=== PATIENT | male | born 1955 | race Caucasian/White ===

== ENCOUNTER 2021-02-24 07:37 | Day surgery (SDC) | payer OTHER, MEDICARE ==
[~2021-02-24 07:37] MED LIST: Lactated Ringers 1,000 ML IV SCH
--- NOTE | 2021-02-24 08:34 | PCM.PREANE ---
Preanesthetic Assessment - Anesthesia/Transfusion/Family Hx Anesthesia History: Prior Anesthesia Without Reaction Transfusion History: No Prior Transfusion(s) - Review of Systems General: No Symptoms Pulmonary: No Symptoms Cardiovascular: No Symptoms Gastrointestinal: No Symptoms Neurological: No Symptoms Other: Reports: None - Physical Assessment NPO Status Date: 02/24/21 NPO Status Time: 00:00 Vital Signs: Last Vital Signs Temp 97.2 F 02/24/21 07:54 Pulse 82 02/24/21 07:54 Resp 16 02/24/21 07:54 BP 99/70 02/24/21 07:54 Pulse Ox 93 L 02/24/21 07:54 Height: 5 ft 6 in Weight: 157 lb ASA Class: 2 Mental Status: Alert & Oriented x3 Airway Class: Mallampati = 2 Dentition: Reports: Normal Dentition ROM/Head Extension: Full Lungs: Clear to Auscultation, Normal Respiratory Effort Cardiovascular: Regular Rate, Regular Rhythm - Allergies Allergies/Adverse Reactions: Allergies Allergy/AdvReac Type Severity Reaction Status Date / Time No Known Allergies Allergy Verified 02/24/21 07:55 - Acknowledgements Anesthesia Type Planned: General Anesthesia Pt an Appropriate Candidate for the Planned Anesthesia: Yes Alternatives and Risks of Anesthesia Discussed w Pt/Guardian: Yes Pt/Guardian Understands and Agrees with Anesthesia Plan: Yes PreAnesthesia Questionnaire HEENT History: Reports: Other (See Below) Other HEENT History: reading glasses Cardiovascular History: Reports: High Cholesterol Respiratory History: Reports: Other (See Below) Other Respiratory History: smoked for 50 years, quit 3 years ago, states SOB at times, positive for COVID in Gastrointestinal History: Reports: Colon Polyp Genitourinary History: Reports: None Other Musculoskeletal History: crush injury to left foot & had surgery to repair lacerations (no broken bones), has some 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 Neurological History: Reports: None Psychiatric History: Reports: None Endocrine/Metabolic History: Reports: None Hematologic History: Reports: None Immunologic History: Reports: None Oncologic (Cancer) History: Reports: None Dermatologic History: Reports: None - Past Surgical History Head Surgeries/Procedures: Reports: None HEENT Surgical History: Reports: Cataract Surgery Cardiovascular Surgical History: Reports: None Respiratory Surgical History: Reports: None GI Surgical History: Reports: Colonoscopy, EGD, Hernia, Inguinal Male Surgical History: Reports: None Endocrine Surgical History: Reports: None Neurological Surgical History: Reports: None Musculoskeletal Surgical History: Reports: Other (See Below) Other Musculoskeletal Surgeries/Procedures:: left foot Oncologic Surgical History: Reports: None Dermatological Surgical History: Reports: None - SUBSTANCE USE Tobacco Use Status *Q: Former Tobacco User Tobacco Use Within Last Twelve Months: Other (See Below) - HOME MEDS Home Medications: Home Meds Ibuprofen 800 mg PO TID PRN 02/20/21 [History] Simvastatin 10 mg PO DAILY 02/20/21 [History] - CURRENT (IN HOUSE) MEDS Current Meds: Current Medications Lactated Ringer's (Ringers, Lactated) 1,000 mls @ 125 mls/hr IV ASDIRECTED [facility] Last Admin: 02/24/21 08:12 Dose: 125 mls/hr Documented by:
[2021-02-24] MEDS ORDERED: fentaNYL 100 MCG/2 ML SDV ONE (09:24)
[2021-02-24] MEDS ORDERED: Propofol 200 MG/20 ML SDV ONE (09:24)
[2021-02-24] MEDS ORDERED: Midazolam 1 MG/ML 2 ML SDV ONE (09:24)
--- NOTE | 2021-02-24 09:40 | PCM.OPNOTE ---
- General Post-Op/Procedure Note Date of Surgery/Procedure: 02/24/21 Operative Procedure(s): Colonoscopy with cold rectal polypectomy. Pre Op Diagnosis: Personal history of colon polyps. History of diverticulosis. Post-Op Diagnosis: Rectal polyp. Mild sigmoid diverticulosis. Anesthesia Technique: MAC (ASA III) Primary Surgeon: Cameron Shahid Condition: Good Free Text/Narrative:: DICTATION [id number] CPT CODE 15039
--- NOTE | 2021-02-24 09:43 | PCM.POSTAN ---
POST ANESTHESIA ASSESSMENT - MENTAL STATUS Mental Status: Alert, Oriented - VITAL SIGNS Vital Signs: Last Vital Signs Temp 97.2 F 02/24/21 07:54 Pulse 82 02/24/21 07:54 Resp 16 02/24/21 07:54 BP 99/70 02/24/21 07:54 Pulse Ox 93 L 02/24/21 07:54 - RESPIRATORY Respiratory Status: Respiratory Rate WNL, Airway Patent, O2 Saturation Stable - CARDIOVASCULAR CV Status: Pulse Rate WNL, Blood Pressure Stable - GASTROINTESTINAL GI Status: No Symptoms - POST OP HYDRATION Hydration Status: Adequate & Stable
--- NOTE | 2021-02-24 09:44 | PCM48HPAN ---
Post Anesthesia Note - EVALUATION WITHIN 48HRS OF ANESTHETIC Vital Signs in Normal Range: Yes Patient Participated in Evaluation: Yes Respiratory Function Stable: Yes Airway Patent: Yes Cardiovascular Function Stable: Yes Hydration Status Stable: Yes Pain Control Satisfactory: Yes Nausea and Vomiting Control Satisfactory: Yes Mental Status Recovered: Yes Vital Signs: Last Vital Signs Temp 97.2 F 02/24/21 07:54 Pulse 82 02/24/21 07:54 Resp 16 02/24/21 07:54 BP 99/70 02/24/21 07:54 Pulse Ox 93 L 02/24/21 07:54
[2021-02-24] MEDS ORDERED: Lactated Ringers 1,000 ML IV SCH (09:45)
--- NOTE | 2021-02-24 10:50 | OR ---
SURGEON: Cameron Shahid M.D. DATE OF PROCEDURE: 02/24/2021 OPERATION PERFORMED: Colonoscopy with cold rectal polypectomy. PRIMARY SURGEON: Cameron Shahid MD ANESTHESIA: MAC. ASA CLASSIFICATION: III. PREOPERATIVE DIAGNOSES: Desire for colorectal cancer screening, personal history of colon polyps. POSTOPERATIVE DIAGNOSES: 1. Diverticulosis. 2. Small rectal polyp. DESCRIPTION OF PROCEDURE: The patient was taken to the endoscopy room and positioned on the endoscopy table in the left lateral decubitus position. Time-out was called for appropriate identification of the patient and procedure. Monitored anesthesia care was provided. The colonoscope was inserted into the rectum and advanced with moderate difficulty to the cecum. The colonoscope was retroflexed in the cecum to visualize the ascending colon from below, then straightened, and slowly withdrawn. The cecum, ascending colon, hepatic flexure, transverse colon, and splenic flexure showed no tumors, polyps, diverticula, or angiodysplastic changes. No tumors or polyps were encountered in the sigmoid colon, although a few small diverticula were noted. The colonoscope was further withdrawn to the rectum, where a small polyp was encountered and removed with multiple bites of the cold biopsy forceps. No significant bleeding was noted. The colonoscope was retroflexed to visualize the anal orifice from above. No tumors, polyps, or acute hemorrhoidal changes were noted. The colonoscope was then straightened, the rectum aspirated, and the colonoscope removed. The patient tolerated procedure well and was taken to recovery room in stable condition. SHEILA / ALIA /[id number]
== END 2021-02-24 10:10 | disposition home or self-care (01) ==
LOC: MW.SDS 07:37
PROVIDERS: ATTEND Surgery
DX: Z12.11 Encounter for screening for malignant neoplasm of colon (principal); K62.1 Rectal polyp; K57.30 Diverticulosis of large intestine without perforation or abscess without bleeding; I10 Essential (primary) hypertension; Z79.899 Other long term (current) drug therapy; Z98.890 Other specified postprocedural states; Z80.0 Family history of malignant neoplasm of digestive organs; Z80.1 Family history of malignant neoplasm of trachea, bronchus and lung
CPT/HCPCS: 45380; J2704; J3010; J7120; 00812; J2250